=== PATIENT | male | born 1965 | race Caucasian/White ===

== ENCOUNTER 2018-07-30 06:33 | Day surgery (SDC) | payer OTHER ==
[~2018-07-30 06:33] MED LIST: CEFAZOLIN 1 GM/50 ML (PMX) 50 ML IVPB; SOD CHLORIDE 0.9% 1,000 ML IV
[2018-07-30] MEDS ORDERED: ETOMIDATE 20 MG INJ (11:53)
[2018-07-30] MEDS ORDERED: PROPOFOL 20 ML (11:53)
[2018-07-30] MEDS ORDERED: LIDOCAINE 1% (MDV) 20 ML INJ (11:54)
[2018-07-30] MEDS ORDERED: MIDAZOLAM 1 MG/ML 2 ML INJ (11:54)
[2018-07-30] MEDS ORDERED: CEFAZOLIN 1 GM INJ (12:26)
[2018-07-30] MEDS ORDERED: ONDANSETRON 4 MG INJ (12:26)
[2018-07-30] MEDS: BUPIVACAINE 0.25% (MPF) 30 ML INJ (12:33)
[2018-07-30] MEDS ORDERED: HYDROCODONE/APAP (5/325) TAB PO (13:00)
== END 2018-07-30 15:29 | disposition home or self-care (01) ==
LOC: SDS 06:33
DX: D17.21 Benign lipomatous neoplasm of skin and subcutaneous tissue of right arm (principal); E11.9 Type 2 diabetes mellitus without complications
CPT/HCPCS: 14021; 82962; 88307